=== PATIENT | male | born 1990 | race African-American/Black ===

== ENCOUNTER 2020-07-31 16:39 | Emergency (ER) | payer SELFPAY ==
[~2020-07-31] VITALS: Ht 182.9 cm; Wt 73.0 kg
[2020-07-31 16:42] VITALS: BP 129/111
[2020-07-31] MEDS ORDERED: MAGNESIUM/ALUMINUM HYDROXIDE/SIMETHICONE 30ML UDC PO STA (17:02)
[2020-07-31] MEDS ORDERED: DICYCLOMINE 10 MG/5 ML ORAL SYR PO STA (17:02)
[2020-07-31 17:31] LABS: HEMATOCRIT. 44.4 % (42.0-52.0); HEMOGLOBIN. 15.6 g/dL (14.0-18.0); MEAN CORPUSCULAR HEMOGLOBIN 31.8 pg (28.0-32.0); MEAN CORPUSCULAR VOLUME 90.7 fL (80.0-94.0); MEAN PLATELET VOLUME 8.7 fl (7.4-10.4); PLATELET 205 x1000/uL (130-400); RED BLOOD CELL COUNT 4.89 mill/uL (4.7-6.1); RED CELL DISTRIBUTION WIDTH 12.6 % (11.6-14.6)
[2020-07-31 17:39] LABS: CHLORIDE 108 mEq/L (98-107)
[2020-07-31 17:43] LABS: ETHANOL BLOOD < 10 mg/dL
[2020-07-31 17:50] LABS: PLATELET ESTIMATE NORMAL
[2020-07-31] MEDS ORDERED: OMEP40CA12 MT (18:40)
[2020-07-31 18:44] LABS: *AMPHETAMINES SCREEN URINE NEGATIVE (NEGATIVE); *BARBITURATES SCREEN URINE NEGATIVE (NEGATIVE); *BENZODIAZEPINES SCREEN URINE NEGATIVE (NEGATIVE); *COCAINE SCREEN URINE NEGATIVE (NEGATIVE); METHADONE URINE SCREEN NEGATIVE (NEGATIVE); OPIATES URINE SCREEN NEGATIVE (NEGATIVE)
[2020-07-31 18:45] LABS: CANNABINOID URINE SCREEN PRESUMTIVE POSITIVE (NEGATIVE); PHENCYCLIDINE URINE SCREEN NEGATIVE (NEGATIVE)
== END 2020-07-31 19:00 | disposition home or self-care (01) ==
LOC: ER 16:39
DX: R10.9 Unspecified abdominal pain (principal)
CPT/HCPCS: 36415; 74176; 80053; 80305; 80320; 85025; 93005; 99291; G0480